=== PATIENT | female | born 1965 | race Caucasian/White ===

== ENCOUNTER 2017-07-14 13:42 | Emergency (ER) | payer OTHER ==
[~2017-07-14] VITALS: Ht 162.6 cm; Wt 74.7 kg
[2017-07-14 14:05] VITALS: TEMP 36.5; O2SAT 99; Ht 162.6 cm; Wt 74.7 kg
--- NOTE | 2017-07-14 14:10 | EMERGENCY ROOM VISIT NOTE ---
History Report prepared by Jonn: Breann Myers Under the Supervision of: Dr. Mike Rosenbaum D.O. First contact with patient: 13:44 Stated Complaint: ALCOHOL OVERDOSE History of Present Illness The patient is a 51 year old female who presents to the Emergency Room with persistent alcohol intoxication starting [employer]. The patient present to the ED by EMS. [place] the [place]. She arrived in [place] from [place] yesterday and got only 3 hours of sleep last night. She started drinking at 0900 this morning. He had mimosas and 2-3 shots of fireball. She also had some beer. Her vitals and blood sugar were normal according to EMS. She had vomited. She states that she is just tired. She denies any trauma. She denies having any headache, chest pain, abdominal pain, or pain elsewhere. She denies any smoking or drug use. She denies being on any medications. She denies any previous surgeries. Source of History: patient, EMS Onset: [employer] Position: other (global) Quality: other (alcohol intoxication) Timing: other (persistent) Associated Symptoms: + vomiting, No headache, No chest pain, No abdominal pain Review of Systems See HPI for pertinent positives & negatives. A total of 10 systems reviewed and were otherwise negative. Past Medical & Surgical Medical Problems: (1) No chronic problems Family History No pertinent family history stated. Social History Housing Status: lives with family Current/Historical Medications Unable to Obtain Active Prescriptions or Reported Meds Physical Exam Vital Signs Date Time Temp Pulse Resp B/P (MAP) Pulse Ox O2 Delivery O2 Flow Rate FiO2 07/14/17 16:50 80 18 112/70 98 07/14/17 15:58 93 18 108/69 98 Room Air 07/14/17 14:05 36.5 94 18 130/63 99 Room Air 07/14/17 14:05 99 Room Air 07/14/17 14:05 99 Room Air 07/14/17 14:02 85 07/14/17 13:52 85 Physical Exam GENERAL: Patient is awake, alert, answers questions when prompted. EYES: Bilateral conjunctival injection noted. Pupils equal round and reactive to light. Extraocular movements intact. EARS, NOSE, MOUTH AND THROAT: The nose is without any evidence of any deformity. Mucous membranes are moist tongue is midline NECK: The neck is nontender and supple. RESPIRATORY: Normal respiratory effort is noted there is no evidence of wheezing rhonchi or rales CARDIOVASCULAR: Regular rate and rhythm noted there no murmurs rubs or gallops normal S1 normal S2 GASTROINTESTINAL: The abdomen is soft. Bowel sounds are present in all quadrants. Abdomen is nontender MUSCULOSKELETAL/EXTREMITIES: There is no evidence of gross deformity full range of motion is noted in the hips and shoulders SKIN: There is no obvious evidence of any rash. There are no petechiae, pallor or cyanosis noted. NEUROLOGIC: Patient is oriented to person, place, and situation. Denies any trauma. Medical Decision & Procedures Laboratory Results 07/14/17 14:08 Test 07/14/17 14:08 Anion Gap 11.0 mmol/L (3-11) Est Creatinine Clear Calc Drug Dose 109.8 ml/min Estimated GFR () 122.3 Estimated GFR (Non- 105.5 BUN/Creatinine Ratio 24.5 (10-20) Calcium Level 8.6 mg/dl (8.5-10.1) Human Chorionic Gonadotropin, Qual NEG (NEG) Ethyl Alcohol mg/dL 184.0 mg/dl (0-3) Laboratory results per my review. Medications Administered Medications (Trade) Dose Ordered Sig/Wei Route Start Time Stop Time Status Last Admin Dose Admin Al Hydroxide/Mg Hydroxide (Maalox Susp) 30 ml NOW STAT PO 07/14/17 15:33 07/14/17 15:34 DC 07/14/17 15:52 30 ML Pantoprazole Sodium (Protonix Tab) 40 mg NOW STAT PO 07/14/17 15:33 07/14/17 15:34 DC 07/14/17 15:52 40 MG ED Course 1343: The patient was evaluated in room C2B. A complete history and physical examination were performed. 1533: Protonix Tab 40 mg PO, Maalox Susp 30 ml PO. 1532: Upon reevaluation, the patient is doing better. I discussed the results and treatment plan with her. She verbalized agreement of the treatment plan. She was discharged home. Medical Decision Prior records/ancillary studies reviewed. Triage Nursing notes reviewed. Additional history obtained from EMS. The patient's history was concerning for altered mental status and a possible alcohol overdose. Differential diagnosis: Etiologies such as alcohol intoxication, toxicologic, infection, hypoglycemia, electrolyte abnormalities, cardiac sources, intracerebral event, neurologic, as well as others were entertained. The patient is a 51-year-old female who presented to the emergency department for evaluation of possible occult intoxication. The patient was clinically intoxicated initially. She was found have an elevated alcohol level. She was reevaluated multiple times. On final reevaluation she was awake and alert in no longer clinically intoxicated. She was encouraged to avoid any further alcoholic beverages. She was also encouraged to avoid operating any heavy machinery including driving a vehicle for next 24 hours. She was also encouraged to return to the emergency department immediately if symptoms change worsen or the need arises. Medication Reconcilliation Current Medication List: was personally reviewed by me Blood Pressure Screening Patient's blood pressure: Normal blood pressure Blood pressure disposition: Did not require urgent referral Impression Primary Impression: Alcohol intoxication Scribe Attestation The scribe's documentation has been prepared under my direction and personally reviewed by me in its entirety. I confirm that the note above accurately reflects all work, treatment, procedures, and medical decision making performed by me. Departure Information Dispostion Home / Self-Care Prescriptions Unable to Obtain Active Prescriptions or Reported Meds Referrals No Doctor, Assigned Forms HOME CARE DOCUMENTATION FORM, IMPORTANT VISIT INFORMATION Patient Instructions ED Alcohol Intoxication, My [facility] Additional Instructions Drink plenty clear liquids. Continue all medications as prescribed. Consider using Maalox or Mylanta as directed for symptomatically relief. Avoid operating any heavy machinery including driving a vehicle for next 24 hours.
[2017-07-14 14:49] LABS: BUN/CREATININE RATIO 24.5 (10-20); CALCIUM 8.6 mg/dl (8.5-10.1); CREATININE 0.6 mg/dl (0.60-1.20); POTASSIUM 3.5 mmol/L (3.5-5.1)
[2017-07-14 15:01] LABS: PREG INTERNAL NEGATIVE QC NEG CLEAR BACKGROUND; PREG INTERNAL POSITIVE QC POS CONTROL LINE
[2017-07-14] MEDS ORDERED: PANTOprazole SOD 40 MG TAB PO STA (15:33)
[2017-07-14] MEDS ORDERED: ALUMINUM/MAGNESIUM SUSP 30 ML UDC PO STA (15:33)
[2017-07-14 16:50] VITALS: BP 112/70; PULSE 80; O2SAT 98
== END 2017-07-14 16:52 | disposition home or self-care (01) ==
LOC: EDBD 13:42 → C.EDC 13:44
DX: F10.129 Alcohol abuse with intoxication, unspecified (principal)